=== PATIENT | female | born 1990 | race Caucasian/White ===

== ENCOUNTER → 2016-10-12 | Outpatient (CLI) | payer BC ==
--- NOTE | 2016-10-12 14:54 | FL ---
EXAMINATION TYPE: FL hysterosalpingography DATE OF EXAM ORDERED: 10/12/2016 2:49 PM HISTORY: N97.9 Infertility. COMPARISON: None. PHYSICIAN COMPUTER SERVICE TECHNICIAN: Dr. Grace. PROCEDURE: Using standard clean technique and Omnipaque 240 for contrast a hysterosalpingogram was pe rformed. FINDINGS: The uterus is normal in size and appearance. Both fallopian tubes appear normal. There is bilateral spill demonstrated. IMPRESSION: NORMAL HYSTEROSALPINGOGRAM.
== END | disposition home or self-care (01) ==
LOC: RADFLWHC 13:27
PROVIDERS: ATTEND Obstetrics & Gynecology
DX: N97.9 Female infertility, unspecified (principal)
CPT/HCPCS: 58340; 74740; Q9966

== ENCOUNTER → 2017-02-21 | Outpatient (CLI) | payer BC | END | disposition home or self-care (01) | LOC: LABWHC1 10:09 | PROVIDERS: ATTEND Obstetrics & Gynecology | DX: Z34.00 Encounter for supervision of normal first pregnancy, unspecified trimester (principal); Z3A.00 Weeks of gestation of pregnancy not specified | CPT/HCPCS: 36415; 84702 ==

== ENCOUNTER → 2017-02-25 | Outpatient (CLI) | payer BC ==
[2017-02-25 10:44] LABS: HCG,Quantitative Serum 842.5 mIU/mL
[2017-02-25 16:40] LABS: Varicella zoster IgG Interp POSITIVE (NEGATIVE); Varicella zoster IgG Result 1.5 AI
== END | disposition home or self-care (01) ==
LOC: LABWHC1 09:42
PROVIDERS: ATTEND Obstetrics & Gynecology Reproductive Endocrinology
DX: N91.0 Primary amenorrhea (principal); Z11.9 Encounter for screening for infectious and parasitic diseases, unspecified
CPT/HCPCS: 36415; 84144; 84439; 84443; 84702; 86762; 86787; 86850; 86900; 86901

== ENCOUNTER → 2017-04-18 | Outpatient (CLI) | payer BC ==
[2017-04-18 12:03] LABS: CH 30.2; CHCM 34.4; HCT 37.6 % (34.0-46.0); HDW 2.34; HGB 12.5 gm/dL (11.4-16.0); MCH 29.4 pg (25.0-35.0); MCHC 33.3 g/dL (31.0-37.0); MCV 88.2 fL (80.0-100.0); Mean Platelet Volume 8.7; RBC 4.26 m/uL (3.80-5.40); RDW 12.6 % (11.5-15.5); WBC 7.4 k/uL (3.8-10.6)
[2017-04-18 13:05] LABS: Glucose 81 mg/dL (74-99); Non-African American GFR(MDRD) >60 (>60 ml/min/1.73 sqM)
[2017-04-18 13:37] LABS: Hepatitis B Surface Ag Index 0.06
[2017-04-18 15:47] LABS: Treponemal Ab Non-Reactive (Non-Reactive)
== END | disposition home or self-care (01) ==
LOC: LABWHC1 11:34
PROVIDERS: ATTEND Obstetrics & Gynecology
DX: Z34.01 Encounter for supervision of normal first pregnancy, first trimester (principal); Z3A.00 Weeks of gestation of pregnancy not specified
CPT/HCPCS: 36415; 82565; 82947; 85027; 86762; 86780; 86850; 86900; 86901; 87340

== ENCOUNTER 2017-10-21 09:09 | Inpatient (IN) | payer BC ==
[~2017-10-21 09:09] MED LIST: CARBOPROST TROMETHAMINE 250 MCG/ML 1 ML AMP IM PRN; LIDOCAINE 1% (PF) 10 MG/ML (30 ML SDV) SQ PRN; METHYLERGONOVINE 0.2 MG/ML 1 ML AMP IM PRN; OXYTOCIN 10 UNIT/ML 1 ML VIAL IM PRN; TERBUTALINE 1 MG/ML VIAL SQ PRN
[2017-10-21] MEDS ORDERED: OXYTOCIN 20 UNITS/1000 ML NS 1,000 ML IV SCH ×2 (09:15→15:30)
[2017-10-21] MEDS ORDERED: LACTATED RINGERS 1,000 ML IV SCH (09:15)
[2017-10-21 10:06] LABS: Basophils % (A) 0 %; Eosinophils % (A) 1 %; HCT 35.6 % (34.0-46.0); HGB 12.3 gm/dL (11.4-16.0); Lymphocytes % (A) 31 %; MCH 31.4 pg (25.0-35.0); MCHC 34.5 g/dL (31.0-37.0); Mean Platelet Volume 13.6; Monocytes # (A) 0.4 k/uL (0-1.0); Monocytes % (A) 7 %; Neutrophils # (A) 3.9 k/uL (1.3-7.7); Neutrophils % (A) 60 %; Platelet Count 120 k/uL (150-450); RBC 3.91 m/uL (3.80-5.40); RDW 12.7 % (11.5-15.5); WBC 6.5 k/uL (3.8-10.6)
[2017-10-21 10:14] LABS: Large Platelets Present
[2017-10-21 11:50] VITALS: BMI 28.3
[2017-10-21] MEDS ORDERED: fentaNYL (PF) 50 MCG/ML 5 ML AMP ONE (12:51)
[2017-10-21] MEDS ORDERED: BUPIVACAINE (PF) 0.25% 30 ML VIAL ONE (12:51)
[2017-10-21] MEDS ORDERED: SODIUM CHLORIDE 0.9% 100 ML BAG ONE (12:51)
--- NOTE | 2017-10-21 12:54 | P.HPOB ---
History of Present Illness H&P Date: 10/21/17 Chief Complaint: Cholestasis of This patient is a pleasant 27-year-old 1 para 0 female estimated date of confinement 11/02/2017 estimated gestational age 38-2/7 weeks which is confirmed by a first trimester ultrasound and by known date of conception. Patient's has been uncomplicated however she did complain to me at the end of last week of some itching of her hands and feet and bilateral since returned today significantly elevated consistent with cholestasis. Since she is at term with a favorable cervix, recommendations are to proceed with delivery at this time. She's been having good movement and had a reactive NST last week. Review of Systems Gastrointestinal: Reports heartburn Genitourinary: Reports Menstruation: Reports amenorrhea Past Medical History Additional Past Medical History / Comment(s): Irritable bowel syndrome, mild endometriosis. History of Any Multi-Drug Resistant Organisms: None Reported Additional Past Surgical History / Comment(s): She's had left foot surgery, laparoscopy. Past Anesthesia/Blood Transfusion Reactions: No Reported Reaction Past Psychological History: No Psychological Hx Reported Smoking Status: Never smoker Past Alcohol Use History: None Reported Past Drug Use History: None Reported - Past Family History Mother Family Medical History: No Reported History Medications and Allergies Home Medications Medication Instructions Recorded Confirmed Type Pnv No.95/Ferrous Fum/Folic AC 1 tab PO DAILY 07/06/17 07/06/17 History [ Multivitamin Tablet] Allergies Allergy/AdvReac Type Severity Reaction Status Date / Time No Known Allergies Allergy Verified 10/21/17 09:16 Exam - Vital Signs Vital signs: Vital Signs Temp Pulse Resp BP Pulse Ox 10/21/17 09:22 97.7 F 96 16 128/78 95 Intake and Output 10/20/17 10/21/17 10/21/17 22:59 06:59 14:59 Other: Weight 77.111 kg - OBG Physical Exam Abdomen: bowel sounds normal, no diffuse tenderness, no bruit present, no guarding noted, no hepatomegaly, no splenomegaly, no mass Vulva: both: normal Cervix: Cervix on admission is 2-3 cm dilated and 80% effaced. Uterus: enlarged (Fundal height is consistent with a term .) Results blood work shows she is AB+, rubella immune, RPR nonreactive, hepatitis B negative, group B strep was negative, ultrasounds have been normal, Glucola was normal, bile acids were elevated to 35.8 Result Diagrams: 10/21/17 09:25 Abnormal Lab Results - Last 24 Hours (Table) 10/21/17 Range/Units 09:25 Plt Count 120 L (150-450) k/uL Assessment and Plan Assessment: This is a pleasant 27-year-old 1 para 0 female 38-2/7 weeks gestation who is admitted to labor and delivery for induction secondary to cholestasis of . I have had a discussion with the patient and her about her diagnosis and reasons for delivery. All her questions have been answered. Plan is induction of labor and anticipate vaginal delivery. (1) Third trimester Current Visit: Yes Status: Acute Code(s): Z34.93 - ENCNTR FOR SUPRVSN OF NORMAL PREG, UNSP, THIRD TRIMESTER SNOMED Code(s): 70471885 (2) Cholestasis Current Visit: Yes Status: Acute Code(s): K83.1 - OBSTRUCTION OF BILE DUCT SNOMED Code(s): 24119695
[2017-10-21] MEDS ORDERED: ACETAMINOPHEN TAB 325 MG TAB PO PRN (15:29)
[2017-10-21] MEDS ORDERED: BENZOCAINE/MENTHOL SPRAY 1 GM/SPRAY AEROSOL TOPICAL PRN (15:29)
[2017-10-21] MEDS ORDERED: diphenhydrAMINE 25 MG CAP PO PRN (15:29)
[2017-10-21] MEDS ORDERED: WITCH HAZEL 1 EACH MED..PAD TOPICAL PRN (15:29)
[2017-10-21] MEDS ORDERED: LANOLIN CREAM 5 GM TUBE TOPICAL PRN (15:29)
[2017-10-21] MEDS ORDERED: HYDROCORTISONE 2.5% RECTAL CREAM 30 GM TUBE RECTAL PRN (15:29)
[2017-10-21] MEDS ORDERED: ZOLPIDEM 5 MG TAB PO PRN (15:29)
[2017-10-21] MEDS ORDERED: diphenhydrAMINE 50 MG/ML 1 ML VIAL IVP PRN (15:29)
[2017-10-21] MEDS ORDERED: SIMETHICONE 80 MG CHEWABLE PO PRN (15:29)
[2017-10-21] MEDS ORDERED: BISACODYL 10 MG SUPP RECTAL PRN (15:29)
[2017-10-21 16:23] VITALS: RESP 16
--- NOTE | 2017-10-21 17:47 | P.PROBDLV ---
Vaginal Delivery Note - . Vaginal Delivery Note: Normal vaginal delivery viable female Apgars 8 and 9 delivery time is 1507 hrs. Please see dictated H&P for intimate details of this patient's admission. Brief summary this is a pleasant 27-year-old 1 para 0 female 38-2/7 weeks gestation who is admitted to labor and delivery after finding out her bile acids were elevated 4 times normal this morning. Patient has had itching for approximately last week or so. Patient is admitted she is 2-3 cm dilated and has artificial rupture membranes for clear fluid. Patient has Pitocin augmentation of labor. Labor progresses and she gets an epidural at 4 cm dilated. Patient thereafter goes quickly to complete pushes the head to the perineum. Posterior perineum is supported we have controlled delivery of infant's head over the intact perineum. Mouth and nares are bulb suctioned at this time. There is no evidence of a nuchal cord. With gentle downward traction we have delivery the anterior and posterior shoulder and rest this infant's body. This is a vigorous viable female Apgars are 8 and 9 delivery time is 1507 hrs. After delivery of the the is late on the mother's abdomen. After the umbilical cords them pulsating is doubly clamped cut and appears to be trivascular. Placenta spontaneously delivered intact. Estimated blood loss is 150 mL. Inspection of perineum shows a first- degree vaginal laceration and a laceration the right labia. Vaginal laceration repaired with 3-0 Vicryl usual fashion the right labia laceration para 4-0 Vicryl. Good reapproximation is noted. Uterus is firm and estimated blood loss is 150 mL. There are no complications. and mother are stable delivery room.
[2017-10-21] MEDS: IBUPROFEN 600 MG TAB PO PRN (19:52)
[2017-10-21] MEDS: SENNOSIDES-DOCUSATE SODIUM 1 EACH TAB PO SCH (22:22)
[2017-10-22] MEDS: IBUPROFEN 600 MG TAB PO PRN ×2 (06:05→14:01)
--- NOTE | 2017-10-22 06:09 | P.PNOBGVD ---
Subjective - Subjective Patient reports: Reports appetite normal, Reports voiding normally, Reports pain well controlled, Reports ambulating normally : doing well Objective - Latest Vital Signs Latest vital signs: Vital Signs Temp Pulse Resp BP Pulse Ox 10/22/17 04:00 80 16 119/74 10/22/17 00:00 97.9 F 83 16 121/79 10/21/17 20:00 98.3 F 88 16 121/82 10/21/17 17:15 90 16 127/59 10/21/17 16:45 98.7 F 89 16 139/63 10/21/17 16:15 82 16 135/76 10/21/17 16:00 88 18 138/84 10/21/17 15:44 85 16 138/66 10/21/17 15:30 86 16 124/80 10/21/17 15:15 98.3 F 88 16 131/71 10/21/17 09:22 97.7 F 96 16 128/78 95 Intake and Output 10/21/17 10/21/17 10/22/17 14:59 22:59 06:59 Output Total 400 Balance -400 Output: Urine 400 Other: # Voids 1 1 Weight 77.111 kg - Exam Lungs: bilateral: normal Chest: Normal S1, Normal S2 Extremities: Present: normal Abdomen: Present: normal appearance, soft Uterus: Present: normal, firm - Labs Labs: Abnormal Lab Results - Last 24 Hours (Table) 10/21/17 Range/Units 09:25 Plt Count 120 L (150-450) k/uL Assessment and Plan Assessment: Post day #1. Patient is resting without complaints. Vital signs are stable she's afebrile. CBC is pending at this time. Her platelets 120 yesterday so recheck that this morning. Patient plans and going home today is felt to be stable for discharge home later on. This point we'll continue routine care. (1) Third trimester Current Visit: Yes Status: Acute Code(s): Z34.93 - ENCNTR FOR SUPRVSN OF NORMAL PREG, UNSP, THIRD TRIMESTER SNOMED Code(s): 79746409 (2) Cholestasis Current Visit: Yes Status: Acute Code(s): K83.1 - OBSTRUCTION OF BILE DUCT SNOMED Code(s): 82004629
--- NOTE | 2017-10-22 06:12 | P.DS ---
Providers Date of admission: 10/21/17 09:09 Expected date of discharge: 10/22/17 Attending physician: Edwin Pinon - Discharge Diagnosis(es) (1) Third trimester Current Visit: Yes Status: Acute (2) Cholestasis Current Visit: Yes Status: Acute Hospital Course: Please see dictated H&P for intimate details of this patient's admission. Brief summary is a pleasant 27-year-old 1 para 0 female who is admitted just morning with a diagnosis of cholestasis. Patient underwent uncomplicated induction of labor quickly went on to have a vaginal delivery viable female infant. Please see dictated delivery note. day #1 patient was without complaints wishes to go home. Patient's felt be stable for discharge home follow up with me in 6 weeks. Of note her platelets on admission were 120s and repeat is pending at time of this dictation. We will continue to follow these but there was no clinical significance at this time. Procedures: Induction of labor and normal vaginal delivery. Patient Condition at Discharge: Good Plan - Discharge Summary Discharge Rx Participant: Yes New Discharge Prescriptions: New Ibuprofen [Motrin] 600 mg PO Q6HR PRN #40 tab PRN Reason: Mild Pain Or Fever >= 100.5 No Action Pnv No.95/Ferrous Fum/Folic AC [ Multivitamin Tablet] 1 tab PO DAILY Discharge Medication List Pnv No.95/Ferrous Fum/Folic AC [ Multivitamin Tablet] 1 tab PO DAILY 09/21 [History] Ibuprofen [Motrin] 600 mg PO Q6HR PRN #40 tab 10/22/17 [Rx] Follow up Appointment(s)/Referral(s): Edwin Pinon MD [STAFF PHYSICIAN] - 12/06/17 9:15 am Patient Instructions/Handouts: Vaginal Delivery (DC) Activity/Diet/Wound Care/Special Instructions: No intercourse or anything per vagina for 6 weeks. Please call if any fever, chills, excessive vaginal bleeding, and/or abdominal pain. Discharge Disposition: HOME SELF-CARE
[2017-10-22 08:16] LABS: Basophils % (A) 0 %; Eosinophils # (A) 0.1 k/uL (0-0.7); Eosinophils % (A) 1 %; HCT 30.9 % (34.0-46.0); HGB 10.9 gm/dL (11.4-16.0); Lymphocytes # (A) 2.3 k/uL (1.0-4.8); Lymphocytes % (A) 24 %; MCHC 35.3 g/dL (31.0-37.0); MCV 90.7 fL (80.0-100.0); Monocytes # (A) 0.5 k/uL (0-1.0); Monocytes % (A) 5 %; Neutrophils # (A) 6.6 k/uL (1.3-7.7); Neutrophils % (A) 69 %; RDW 12.7 % (11.5-15.5); WBC 9.6 k/uL (3.8-10.6)
[2017-10-22] MEDS: SENNOSIDES-DOCUSATE SODIUM 1 EACH TAB PO SCH (09:17)
[2017-10-22 10:34] LABS: Platelet Count 99 k/uL (150-450)
[2017-10-22 12:06] VITALS: BP 109/71; PULSE 84; TEMP 98
== END 2017-10-22 17:30 | disposition home or self-care (01) | DRG 775 ==
LOC: 4FBP 09:09
PROVIDERS: ADMIT Obstetrics & Gynecology; ATTEND Obstetrics & Gynecology
PROC: 10E0XZZ Delivery of Products of Conception, External Approach (ICD-10-PCS; principal; 2017-10-21)
PROC: 0HQ9XZZ Repair Perineum Skin, External Approach (ICD-10-PCS; 2017-10-21)
DX: O26.62 Liver and biliary tract disorders in childbirth (principal); K83.1 Obstruction of bile duct; Z37.0 Single live birth; O99.62 Diseases of the digestive system complicating childbirth; K58.9 Irritable bowel syndrome, unspecified; O70.0 First degree perineal laceration during delivery; Z3A.38 38 weeks gestation of pregnancy
CPT/HCPCS: 85025; 88307

== ENCOUNTER → 2019-12-30 | Outpatient (CLI) | payer BC ==
[2019-12-30 19:25] LABS: Prolactin 9.1 ng/mL (2.8-29.2)
[2019-12-30 20:20] LABS: Hepatitis B Surface Antigen Non-Reactive (Non-Reactive); Hepatitis C IgG Antibody Non-Reactive (Non-Reactive)
[2019-12-30 20:57] LABS: HIV 2 AB Non-Reactive (Non-Reactive); HIV AB P24 Non-Reactive (Non-Reactive); HIV P24 AG Non-Reactive (Non-Reactive)
[2019-12-30 22:19] LABS: Hemoglobin A1C 4.5 % (4.0-6.0)
[2020-01-01 04:37] LABS: Varicella IgM Antibody 1.18 INDEX (<=0.90)
== END | disposition home or self-care (01) ==
LOC: LABWHC1 11:51
PROVIDERS: ATTEND Obstetrics & Gynecology Reproductive Endocrinology
DX: Z01.812 Encounter for preprocedural laboratory examination (principal)
CPT/HCPCS: 36415; 82306; 82397; 83036; 84146; 84443; 86704; 86762; 86780; 86787; 86803; 87340; 87390

== ENCOUNTER → 2021-04-24 | Outpatient (CLI) | payer BC | END | disposition home or self-care (01) | LOC: LABWHC1 11:30 | PROVIDERS: ATTEND Obstetrics & Gynecology | DX: Z34.81 Encounter for supervision of other normal pregnancy, first trimester (principal); Z3A.00 Weeks of gestation of pregnancy not specified | CPT/HCPCS: 36415; 84702 ==

== ENCOUNTER → 2025-02-18 | Outpatient (CLI) | payer BC ==
--- NOTE | 2025-02-18 15:44 | US ---
EXAMINATION TYPE: US transvaginal DATE OF EXAM: 02/18/2025 COMPARISON: NONE CLINICAL INDICATION: Female, 34 years old with history of R10.2 PELVIC AND PERINEAL PAIN; Right sided pelvic pain. Patient states very sharp pain during her last period that has since become a dull ache . History of endometriosis. TECHNIQUE: Transvaginal (TV). Transvaginal grayscale sonographic images of the pelvis were acquired. Doppler imaging: Not performed. FINDINGS: Date of LMP: 02/02/2025 EXAM MEASUREMENTS: Uterus: 6.6 x 5.5 x 6.1 cm Endometrial Stripe: 0.5 cm Right Ovary: 3.3 x 1.0 x 2.0 cm Left Ovary: 3.7 x 1.5 x 2.2 cm 1. Uterus: Retroverted Appears heterogeneous 2. Endometrium: wnl 3. Right Ovary: wnl 4. Left Ovary: Anechoic area seen measuring 2.1 x 1.3 x 1.5 cm ?dominant follicle vs. cyst? 5. Bilateral Adnexa: Multiple dilated vessels seen bilaterally. Largest measured on each side: Right: 0.7 cm Left: 1.0 cm 6. Posterior cul-de-sac: wnl The uterus slides freely against adjacent bowel with light transducer p ressure. IMPRESSION: Dilated tubular structures compatible vessels correlate for pelvic congestion syndrome. Otherwise no acute process. Endometrium within normal limits for thickness. [facility], , 02/18/2025 3:42 PM
== END | disposition home or self-care (01) ==
LOC: RADUSWWP 14:04
PROVIDERS: ATTEND Internal Medicine Geriatric Medicine
DX: I28.8 Other diseases of pulmonary vessels (principal); R10.2 Pelvic and perineal pain
CPT/HCPCS: 76830